=== PATIENT | male | born 1960 | race Caucasian/White ===

== ENCOUNTER 2021-11-07 12:44 | Outpatient (CLI) | payer BC, SELFPAY ==
--- NOTE | 2021-11-07 13:00 | TELERAD_ITS ---
[address] [address] Phone:?[phone] Fax:?[phone] Referring Physician Information: Manny Sanchez D.C. [address] [facility] [address] Phone:?[phone] Fax:?[phone] Patient:Silvestre Campbell D.O.B:?1960 Sex:?Male Phone:?[phone] [facility] MRN:?[id number] Exam Date:?11/07/2021 ? EXAM: MRI of the RIGHT SHOULDER, without contrast CLINICAL INFORMATION: Male, 60 years old, with anterior shoulder pain from Achilles bursitis. INDICATION: Shoulder pain PRIOR SURGERY: None reported. PLAIN FILMS: None available. COMPARISONS: No prior MRIs available. TECHNICAL INFORMATION: Using a 1.5T MR scanner and a localizing surface coil: Coronals: PD, T2FS Sagittals: PDFS, T2 Axials: PD, PDFS SEDATION: None CONTRAST: None FINDINGS: Bones: Proximal humerus: No fracture or marrow edema/pathology. No humeral Hill-Sachs or reverse Hill-Sachs lesion/impaction or contusion. Glenoid: No fracture or marrow edema/pathology. No osseous Bankart lesion. Rotator cuff and muscles/tendons: Supraspinatus: Full-thickness, full width tearing of the supraspinatus at the critical zone approximately 1.3 cm from the insertional footprint with thickening and retraction to the level of the glenohumeral joint line. Moderate muscle belly atrophy. Infraspinatus: Moderate infraspinatus tendinosis without discrete rotator cuff tear. No muscle belly atrophy. Teres minor: No tendinopathy, tear or atrophy. Subscapularis: Moderate subscapularis tendinosis without rotator cuff tear. No muscle volume loss or fatty infiltration. Deltoid: No strain or atrophy. Coracoacromial arch: Acromion morphology: The acromion has type II morphology. No discrete subacromial osseous spur or os acromiale. Inferiorly prominent acromial attachment of the coracoacromial ligament narrows the soft tissue acromiohumeral space, measuring approximately 4 mm Coracohumeral space: The coracohumeral space is within normal limits. Acromioclavicular joint: Joint: Mild to moderate AC joint arthrosis with small subchondral cystic change. Ligaments: Coracoclavicular ligaments are intact. Bursae: Subacromial-subdeltoid: Fluid extends into the subacromial/deltoid bursa in keeping with full-thickness rotator cuff tearing. Subcoracoid: No convincing subcoracoid bursal thickening/bursitis. Biceps tendon: The long head of the biceps tendon is present within the bicipital groove. The intra-articular and extra-articular segments are intact without tendinosis, tenosynovitis, or displacement. Glenohumeral joint: Effusion/cyst: Small sized glenohumeral joint effusion. Articular cartilage: Humeral head: No osteochondral abnormalities. Glenoid: No osteochondral abnormalities. Loose bodies: No discrete intra-articular body within the joint. Labrum:?Degenerative appearing fraying and tearing throughout the superior labrum. No other definite evidence for labral tear. No paralabral ganglion cyst is identified. Inferior glenohumeral ligament/axillary pouch:?The inferior glenohumeral ligament is thickened. There is infiltration of the soft tissues in the rotator interval. IMPRESSION: 1. Full-thickness, full width tearing of the supraspinatus at the critical zone with retraction to the level of the glenohumeral joint line. Moderate muscle belly atrophy. 2. Moderate infraspinatus and subscapularis tendinosis without rotator cuff tear. 3. Degenerative appearing fraying and tearing throughout labrum. 4. Thickened and edematous appearance of the inferior glenohumeral ligament along with infiltration of the soft tissues in the rotator interval, as can be seen with adhesive capsulitis in the appropriate clinical setting. 5. Mild to moderate AC joint arthrosis with mild inferior osteophytosis. Mild narrowing of the acromiohumeral space. 6. No tendinopathy, tear, or displacement of the long head of the biceps tendon. 7. No osteochondral defect. KME Electronically signed on 11/10/2021 11:23:00 AM by Armida Romo M.D.
== END 2021-11-07 12:45 | disposition home or self-care (01) ==
LOC: MRI 12:50
PROVIDERS: PCP Chiropractor; Visit Provider Chiropractor
DX: M25.511 Pain in right shoulder (principal); M75.101 Unspecified rotator cuff tear or rupture of right shoulder, not specified as traumatic; M75.01 Adhesive capsulitis of right shoulder
CPT/HCPCS: 73221

== ENCOUNTER 2024-03-15 16:27 | Emergency (ER) | payer BC, SELFPAY ==
[2024-03-15] VITALS (7 sets, daily range): BP systolic 137; BP diastolic 90; PULSE 71–95; RESP 16; TEMP 36.7; O2SAT 94–97; BMI 25.4
--- NOTE | 2024-03-15 17:03 | ED.CHESTPAIN ---
HPI - Chest Pain General Chief Complaint: Chest Pain Stated Complaint: chest pain Time Seen by Provider: 03/15/24 16:45 History of Present Illness HPI narrative: This 63-year-old male comes in reporting chest pain. This began about an hour and half prior to arrival as he was driving in his car. He began to feel a sharp pain in his axilla region on the left side. He states that he has felt pain like this on various occasions but this 1 seemed more intense and seemed to last longer. He does not report any nausea, vomiting, lightheadedness, shortness of breath, diaphoresis, or exercise intolerance. He states that he regularly exercises without any issues. He reports that the pain is still present but is better at this time. He states that he is not able to reproduce or worsen the pain with movement or taking deep breaths. Related Data Allergies Allergy/AdvReac Type Severity Reaction Status Date / Time No Known Drug Allergies Allergy Verified 03/15/24 16:41 Review of Systems Status of ROS Reports: 10 or more systems reviewed and unremarkable except as noted in History and below Narrative Constitutional: No fevers, no weight gain or loss. Eyes: No discharge. No vision changes. HENT: No congestion, no sore throat, no ear pain. Cardiovascular: No palpitations. Respiratory: No shortness of breath, no wheezes, no cough. Gastrointestinal: No abdominal pain, no vomiting, no diarrhea. Genitourinary: No dysuria, no hematuria. Musculoskeletal: Normal range of motion. Skin: No rashes, no pruritis. Neurological: No dizziness, weakness, sensory change, speech change. Endo/Heme/Allergies: No bruising or bleeding. No polydipsia. Pysch: no suicidality, no anxiety, no insomnia. All other systems reviewed and are negative. Exam Narrative Exam Narrative: Constitutional: Well-developed, well-nourished, no acute distress. HEENT: Normocephalic, atraumatic. Neck: Normal range of motion. Nontender. Supple. Heart: Regular. No murmurs. Normal rate. Intact distal pulses. Lungs: Clear to auscultation. No chest discomfort. No wheezes, rhonchi, or rales. Abdomen: Normal bowel sounds. Nontender. No rebound tenderness. Genitalia: Deferred. Back: No midline tenderness. Normal range of motion. Extremities: Normal range of motion. No injury. Skin: Intact. No rash. Warm. No erythema or pallor. Neurologic: No altered sensation. No weakness. Alert and oriented. Psychiatric: No suicidality. No anxiety or depression. No insomnia. Nursing notes and vitals signs are reviewed. Const Vital Signs, click to edit/add: Vital Signs - 24 hr 03/15/24 16:37 03/15/24 16:47 03/15/24 17:00 Temperature 98.1 F Pulse Rate 87 87 Pulse Rate [Pulse Oximeter] 95 Respiratory Rate 16 Blood Pressure [Right Upper Arm] 137/90 H Pulse Oximetry 96 95 97 Oxygen Delivery Method Room Air 03/15/24 17:15 03/15/24 17:30 Temperature Pulse Rate 80 71 Pulse Rate [Pulse Oximeter] Respiratory Rate Blood Pressure [Right Upper Arm] Pulse Oximetry 94 95 Oxygen Delivery Method Course Vital Signs Vital signs: Initial Vital Signs Temperature 98.1 F 03/15/24 16:37 Temperature Source Temporal Artery Scan 03/15/24 16:37 Pulse Rate 95 03/15/24 16:37 Respiratory Rate 16 03/15/24 16:37 Blood Pressure 137/90 H 03/15/24 16:37 Blood Pressure Mean 105 03/15/24 16:37 Blood Pressure Position High-Fowlers 03/15/24 16:37 Pulse Oximetry 96 03/15/24 16:37 Oxygen Delivery Method Room Air 03/15/24 16:37 Vital Signs Temperature 98.1 F 03/15/24 16:37 Pulse Rate 95 03/15/24 16:37 Respiratory Rate 16 03/15/24 16:37 Blood Pressure 137/90 H 03/15/24 16:37 Pulse Oximetry 96 03/15/24 16:37 Oxygen Delivery Method Room Air 03/15/24 16:37 Temperature 98.1 F 03/15/24 16:37 Pulse Rate 71 03/15/24 17:30 Respiratory Rate 16 03/15/24 16:37 Blood Pressure 137/90 H 03/15/24 16:37 Pulse Oximetry 95 03/15/24 17:30 Oxygen Delivery Method Room Air 03/15/24 16:37 MDM - Chest Pain MDM Narrative Medical decision making narrative: This patient comes in reporting pain that came on spontaneously in his left axilla region while driving his car. His pain is dissipated and upon repeat examination he is no longer having any pain. He arrives here with normal vital signs and is EKG was obtained soon after arrival. This returned with normal results. The patient is taking a blood pressure medicine but otherwise does not have any risk factors. He exercises regularly without any symptoms. Labs are acquired today and returned with reassuring results. His troponin returns at 0. It seems very unlikely that these symptoms are emanating from a intrathoracic cause but more likely chest wall or nerve mediated etiology. The patient was reassured with these results and is okay to return home to resume current plans. Lab Data Labs: Lab Results 03/15/24 03/15/24 Range/Units 17:02 17:37 WBC 6.10 (4.50-11.00) K/uL RBC 4.90 (4.30-5.90) m/uL Hgb 13.5 (13.5-17.5) gm/dL Hct 38.9 (37.0-53.0) % MCV 79 L (80-100) fL MCH 28 (26-34) pg MCHC 35 (32-36) gm/dL RDW Coeff of Paddy 12.2 (11.5-15.5) % Plt Count 201 (140-440) K/uL Neut % (Auto) 48.3 (42.0-72.0) % Lymph % (Auto) 42.6 (20-44) % Boundary % (Auto) 6.1 (0.0-11.0) % Eos % (Auto) 2.6 (0.0-7.0) % Baso % (Auto) 0.2 (0.0-3.0) % Neut # (Auto) 2.95 (1.7-7.0) K/uL Lymph # (Auto) 2.60 (0.90-2.90) K/uL Boundary # (Auto) 0.40 (0.00-0.90) K/UL Eos # (Auto) 0.16 (0.00-0.50) K/uL Baso # (Auto) 0.01 (0.00-0.30) K/uL Abs Immat Gran (auto) 0.01 (0.00-0.30) K/uL Imm/Tot Granulo (auto) 0.2 % Sodium 138 (135-149) mmol/L Potassium 3.4 L (3.6-5.1) mmol/L Chloride 106 (96-114) mmol/L Carbon Dioxide 25 (20-32) mmol/L Anion Gap 7 (7-15) mEq/L BUN 12 (7-30) mg/dL Creatinine 0.8 (0.5-1.5) mg/dL Estimated Creat Clear 77.57 Estimated GFR 101 ml/min Glucose 107 (60-115) mg/dL Calcium 9.3 (8.4-10.6) mg/dL POC Troponin I 0.00 L (0.01-0.04) ng/ml ECG Data Attestation: I personally reviewed and interpreted this ECG as follows: Interpretation: Normal sinus rhythm. Rate is 94 beats per minute. There are no ST or T-wave abnormalities. Discharge Plan Discharge Clinical Impression: Atypical chest pain Additional Instructions: Continue current plans. Activity as tolerated. Follow up with MD return if worsening. Follow Up/Referrals: Manny Sanchez DC [Referring] -
[2024-03-15 17:40] LABS: Basophils Absolute Auto 0.01 K/uL (0.00-0.30); Basophils Percent Auto 0.2 % (0.0-3.0); Eosinophils Absolute Auto 0.16 K/uL (0.00-0.50); Eosinophils Percent Auto 2.6 % (0.0-7.0); Hematocrit 38.9 % (37.0-53.0); Hemoglobin* 13.5 gm/dL (13.5-17.5); Immature Granulocytes Abs Auto 0.01 K/uL (0.00-0.30); Immature Granulocytes Pct Auto 0.2 %; Lymphocytes Percent Auto 42.6 % (20-44); Mean Corpuscular HGB Conc 35 gm/dL (32-36); Mean Corpuscular Hemoglobin 28 pg (26-34); Mean Corpuscular Volume 79 fL (80-100); Monocytes Percent Auto 6.1 % (0.0-11.0); Neutrophils Absolute Auto 2.95 K/uL (1.7-7.0); Neutrophils Percent Auto 48.3 % (42.0-72.0); Platelet Count* 201 K/uL (140-440); RDW Coefficient of Variation % 12.2 % (11.5-15.5)
[2024-03-15 17:49] LABS: Slide Review Reflex No
[2024-03-15 17:52] LABS: Chloride* 106 mmol/L (96-114); Potassium* 3.4 mmol/L (3.6-5.1); Sodium* 138 mmol/L (135-149)
[2024-03-15 17:55] LABS: Anion Gap 7 mEq/L (7-15); Blood Urea Nitrogen* 12 mg/dL (7-30); Carbon Dioxide* 25 mmol/L (20-32); Creatinine* 0.8 mg/dL (0.5-1.5); Est. Creatinine Clearance* 77.57; Estimated Glomerular Filt Rate 101 ml/min; Glucose* 107 mg/dL (60-115)
[2024-03-15 17:56] LABS: Calcium* 9.3 mg/dL (8.4-10.6)
== END 2024-03-15 18:13 | disposition home or self-care (01) ==
PROVIDERS: Emergency Provider Emergency Medicine Emergency Medical Services
DX: R07.9 Chest pain, unspecified (principal)
CPT/HCPCS: 36415; 80048; 84484; 85025; 93005; 99284